=== PATIENT | male | born 1970 | race Caucasian/White ===

== ENCOUNTER 2018-04-26 04:35 | Emergency (ER) | payer MEDICAID ==
[~2018-04-26] VITALS: Ht 180.3 cm; Wt 163.1 kg
[2018-04-26 04:37] VITALS: BP 139/85
== END 2018-04-26 05:15 | disposition home or self-care (01) ==
LOC: ED 04:50 → EDBD 04:50 → ED 05:15
DX: L03.211 Cellulitis of face (principal); E78.5 Hyperlipidemia, unspecified; I10 Essential (primary) hypertension; E11.9 Type 2 diabetes mellitus without complications; E66.9 Obesity, unspecified
CPT/HCPCS: 99283